=== PATIENT | female | born 1995 | race African-American/Black ===

== ENCOUNTER 2017-01-04 12:08 | Emergency (ER) | payer MEDICAID ==
[~2017-01-04] VITALS: Ht 165.1 cm; Wt 79.0 kg
[2017-01-04 13:12] VITALS: BP 122/80
== END 2017-01-04 15:54 | disposition home or self-care (01) ==
LOC: ER 13:31
DX: R04.0 Epistaxis (principal); Z98.890 Other specified postprocedural states
CPT/HCPCS: 99283